=== PATIENT | male | born 1990 | race American Indian/Alaskan Native ===

== ENCOUNTER 2019-04-23 17:22 | Emergency (ER) | payer OTHER ==
[2019-04-23 18:37] VITALS: BP 120/61
--- NOTE | 2019-04-23 20:37 | Event Note ---
ED Screening Note Date of service: 04/23/19 Time: 20:35 ED Screening Note: Pt present c/o left index finger laceration. He was trying to roller picker a slide in pathology which was on floor when one of the corners cut his index finger. This occurred earlier today. This initial assessment/diagnostic orders/clinical plan/treatment(s) is/are subject to change based on patients health status, clinical progression and re- assessment by fellow clinical providers in the ED. Further treatment and workup at subsequent clinical providers discretion. Patient/guardian urged not to elope from the ED as their condition may be serious if not clinically assessed and managed. Initial orders include: xray
[2019-04-23] MEDS ORDERED: TETANUS,DIPH,PERTUSS(ACELL) VACCINE 0.5 ML SYRINGE IM ONE (20:38)
--- NOTE | 2019-04-23 20:52 | Emergency Department Report ---
ED Upper Extremity Inj HPI - General Chief Complaint: Wound/Laceration Stated Complaint: FINGER INJURY Time Seen by Provider: 04/23/19 20:34 Source: patient Mode of arrival: Ambulatory Limitations: No Limitations - History of Present Illness Initial Comments: Patient is a 29-year-old male presented to the ED with acute onset persistent puncture wound on left index finger on palmar side after he picked up a broken piece of glass at work about 3 hours ago. Patient states that the bleeding is controlled at this time. She denies numbness or tingling or weakness of the left index finger, nausea, vomiting or fall. Patient states that he is not up-to-date with his tetanus vaccinations. Complaint: Injury to:: left, finger (index finger puncture wound) -: Sudden, hour(s) (3), This evening Other Extremity Injury: Fingers: Left (distal index finger puncture wound) Other Injuries: none Handedness: left Place: work Severity scale (0 -10): 2 Improves With: none Worsens With: none Context: laceration (small puncture wound on distal left index finger) Associated Symptoms: denies other symptoms. denies: weakness, numbness, neck pain, suspects foreign body, nausea/vomiting, heard/felt popping sensat - Related Data Previous Rx's Medication Instructions Recorded Last Taken Type Ibuprofen [Motrin] 600 mg PO Q8H PRN #15 tablet 04/23/19 Unknown Rx Sulfamethoxazole/Trimethoprim 1 each PO Q12H #20 tablet 04/23/19 Unknown Rx [Bactrim DS TAB] Allergies Allergy/AdvReac Type Severity Reaction Status Date / Time No Known Allergies Allergy Verified 04/23/19 18:33 ED Review of Systems ROS: Stated complaint: FINGER INJURY Other details as noted in HPI Constitutional: denies: chills, fever Eyes: denies: eye pain, eye discharge, vision change ENT: denies: ear pain, throat pain Respiratory: denies: cough, shortness of breath, wheezing Cardiovascular: denies: chest pain, palpitations Endocrine: no symptoms reported Gastrointestinal: denies: abdominal pain, nausea, diarrhea Genitourinary: denies: urgency, dysuria Musculoskeletal: arthralgia (mild pain on distal left index finger due to a small puncture wound). denies: back pain, joint swelling Skin: other (Small puncture wound on distal left index finger). denies: rash, lesions Neurological: denies: headache, weakness, paresthesias Psychiatric: denies: anxiety, depression Hematological/Lymphatic: denies: easy bleeding, easy bruising ED Past Medical Hx - Past Medical History Previous Medical History?: No - Surgical History Past Surgical History?: No - Social History Smoking Status: Never Smoker - Medications Home Medications: Home Medications Medication Instructions Recorded Confirmed Last Taken Type Ibuprofen [Motrin] 600 mg PO Q8H PRN #15 tablet 04/23/19 Unknown Rx Sulfamethoxazole/Trimethoprim 1 each PO Q12H #20 tablet 04/23/19 Unknown Rx [Bactrim DS TAB] ED Physical Exam - General Limitations: No Limitations General appearance: alert, in no apparent distress - Head Head exam: Present: atraumatic, normocephalic, normal inspection - Eye Eye exam: Present: normal appearance, PERRL, EOMI Pupils: Present: normal accommodation - ENT ENT exam: Present: normal exam, normal orophraynx, mucous membranes moist, TM's normal bilaterally, normal external ear exam - Neck Neck exam: Present: normal inspection, full ROM - Respiratory Respiratory exam: Present: normal lung sounds bilaterally. Absent: respiratory distress, wheezes, rales, rhonchi, chest wall tenderness, accessory muscle use, prolonged expiratory - Cardiovascular Cardiovascular Exam: Present: regular rate, normal rhythm, normal heart sounds. Absent: systolic murmur, diastolic murmur, rubs, gallop - GI/Abdominal GI/Abdominal exam: Present: soft, normal bowel sounds. Absent: tenderness, guarding, rebound, hyperactive bowel sounds, hypoactive bowel sounds, organomegaly, pulsatile mass, hernia - Rectal Rectal exam: Present: deferred - Extremities Exam Extremities exam: Present: normal inspection, full ROM, tenderness (Mildly tender distal left index finger due to a small bleeding puncture wound), normal capillary refill - Back Exam Back exam: Present: normal inspection, full ROM. Absent: muscle spasm, paraspinal tenderness - Neurological Exam Neurological exam: Present: alert, oriented X3, CN II-XII intact, normal gait, reflexes normal - Psychiatric Psychiatric exam: Present: normal affect, normal mood - Skin Skin exam: Present: warm, dry, intact, normal color, other (Bleeding small puncture wound on distall left index finger). Absent: rash ED Course Vital Signs 04/23/19 18:36 Temperature 98.4 F Pulse Rate 69 Respiratory 16 Rate Blood Pressure 120/61 O2 Sat by Pulse 100 Oximetry - Reevaluation(s) Reevaluation #1: 04/23/19 20:52 04/23/19 20:54This is a 29-year-old -[place] male with no past medical history presented to the ED with a painful small puncture wound on the left index finger after a piece of glass that he had picked from the flow function is left index finger on palmar site's ago. In the ED, patient is alert and oriented 3 and is not in distress. Patient was treated in the ED with booster tetanus vaccination. The wound was cleaned thoroughly and dressed with a Band- Aid. The bleeding was well controlled prior to the dressing. Patient was discharged home on prophylactic antibiotics and pain medication and advised to follow-up with his primary care physician in 7-10 days for reevaluation or return to the ED immediately if symptoms get worse. Patient declined an x-ray of the left index finger to rule out foreign body in the left index finger. ED Medical Decision Making - Medical Decision Making This is a 29-year-old -[place] male with no past medical history presented to the ED with a painful small puncture wound on the left index finger after a piece of glass that he had picked from the flow function is left index finger on palmar site's ago. In the ED, patient is alert and oriented 3 and is not in distress. Patient was treated in the ED with booster tetanus vaccination. The wound was cleaned thoroughly and dressed with a Band-Aid. The bleeding was well controlled prior to the dressing. Patient was discharged home on prophylactic antibiotics and pain medication and advised to follow-up with his primary care physician in 7-10 days for reevaluation or return to the ED immediately if symptoms get worse. Patient declined an x-ray of the left index finger to rule out foreign body in the left index finger. - Differential Diagnosis left index finger puncture wound Critical care attestation.: If time is entered above; I have spent that time in minutes in the direct care of this critically ill patient, excluding procedure time. ED Disposition Clinical Impression: Puncture wound of left index finger Disposition: DC-01 TO HOME OR SELFCARE Is pt being admited?: No Does the pt Need Aspirin: No Condition: Stable Instructions: Puncture Wound (ED) Additional Instructions: Take medications with food, drink plenty of fluids and follow up with your primary care physician in 7-10 days for reevaluation. Return to the ED immediately if symptoms get worse. Prescriptions: Sulfamethoxazole/Trimethoprim [Bactrim DS TAB] 1 each PO Q12H #20 tablet Ibuprofen [Motrin] 600 mg PO Q8H PRN #15 tablet PRN Reason: Pain Referrals: [facility] [Outside] - 3-5 Days Time of Disposition: 20:56 Print Language: YORUBA
--- NOTE | 2019-04-23 21:14 | XRay Report ---
LEFT INDEX FINGER 3 VIEWS INDICATION / CLINICAL INFORMATION: PW glass. COMPARISON: None available. FINDINGS: No fracture, dislocation or radiopaque foreign body is seen within the left hand or index finger. Signer Name: Miguel Bonilla MD Signed: 04/23/2019 9:10 PM Workstation Name: [id number]
== END 2019-04-23 21:20 | disposition home or self-care (01) ==
LOC: ED 17:22
DX: S61.231A Puncture wound without foreign body of left index finger without damage to nail, initial encounter (principal); Z88.5 Allergy status to narcotic agent; W01.110A Fall on same level from slipping, tripping and stumbling with subsequent striking against sharp glass, initial encounter; Y93.89 Activity, other specified; Y92.69 Other specified industrial and construction area as the place of occurrence of the external cause; Y99.8 Other external cause status
CPT/HCPCS: 90471; 90715